=== PATIENT | female | born 1950 | race Caucasian/White ===

== ENCOUNTER → 2023-09-07 09:57 | Outpatient (REF) | payer MEDICARE, OTHER, SELFPAY ==
[2023-09-07 11:57] LABS: HDL Cholesterol 73 mg/dl; LDL Cholesterol, Calculated 110 mg/dl; Total Cholesterol 198 mg/dl (50-199); Triglyceride 75 mg/dl (10-149); Very Low Density Lipoprotein 15 mg/dl (0-30)
== END ==
LOC: REG 09:57
PROVIDERS: ATTENDING PHYSICIAN Family Medicine
DX: E78.5 Hyperlipidemia, unspecified (principal); R73.03 Prediabetes
CPT/HCPCS: 36415; 80061; 83036

== ENCOUNTER → 2023-12-08 11:00 | Outpatient (REF) | payer MEDICARE, OTHER, SELFPAY ==
[2023-12-08 13:54] LABS: Free T4 1.24 ng/dl (0.78-2.19)
[2023-12-08 14:08] LABS: TSH 1.67 uIU/ml (0.47-4.68)
[2023-12-08 14:44] LABS: Folate 8.1 ng/ml (2.76-20); Vitamin B12 > 1000 pg/ml (239-931)
== END ==
LOC: REG 11:00
PROVIDERS: ATTENDING PHYSICIAN Specialist; FAMILY PHYSICIAN Family Medicine
DX: E03.9 Hypothyroidism, unspecified (principal); D51.9 Vitamin B12 deficiency anemia, unspecified
CPT/HCPCS: 36415; 82607; 82746; 84439; 84443

== ENCOUNTER → 2023-12-09 15:49 | Outpatient (REF) | payer MEDICARE, OTHER, SELFPAY | LOC: HWRAD 15:49 | PROVIDERS: ATTENDING PHYSICIAN Specialist; FAMILY PHYSICIAN Family Medicine | DX: G31.84 Mild cognitive impairment of uncertain or unknown etiology (principal) | CPT/HCPCS: 70450 ==

== ENCOUNTER → 2024-02-16 06:31 | Day surgery (SDC) | payer MEDICARE, OTHER, SELFPAY | LOC: GI 06:31 | PROVIDERS: ATTENDING PHYSICIAN Specialist | DX: Z12.11 Encounter for screening for malignant neoplasm of colon (principal); K64.8 Other hemorrhoids; K57.30 Diverticulosis of large intestine without perforation or abscess without bleeding; Z80.0 Family history of malignant neoplasm of digestive organs; Z86.010 Personal history of colon polyps; Z98.0 Intestinal bypass and anastomosis status | CPT/HCPCS: G0105 ==

== ENCOUNTER → 2024-03-02 12:12 | Outpatient (REF) | payer MEDICARE, OTHER, SELFPAY | LOC: WDC 12:12 | PROVIDERS: ATTENDING PHYSICIAN Obstetrics & Gynecology; FAMILY PHYSICIAN Family Medicine | DX: Z12.31 Encounter for screening mammogram for malignant neoplasm of breast (principal) | CPT/HCPCS: 77063; 77067 ==

== ENCOUNTER → 2024-03-16 10:44 | Outpatient (REF) | payer MEDICARE, OTHER, SELFPAY | LOC: RAD 10:44 | PROVIDERS: ATTENDING PHYSICIAN Obstetrics & Gynecology; FAMILY PHYSICIAN Family Medicine | DX: Z78.0 Asymptomatic menopausal state (principal) | CPT/HCPCS: 77080 ==

== ENCOUNTER → 2024-11-15 16:30 | Outpatient (REF) | payer MEDICARE, OTHER, SELFPAY | LOC: RAD 16:30 | PROVIDERS: ATTENDING PHYSICIAN Student in an Organized Health Care Education/Training Program; FAMILY PHYSICIAN Family Medicine | DX: R10.31 Right lower quadrant pain (principal) | CPT/HCPCS: 74177; Q9967 ==

== ENCOUNTER 2024-11-16 00:17 | Day surgery (SDC) | payer MEDICARE, OTHER, SELFPAY ==
[2024-11-15 19:19] VITALS: BP 163/100
[2024-11-15 19:44] LABS: % Basophils 0.9 % (0-2); % Eosinophils 1.4 % (0-6); % Immature Granulocytes 0.2 % (0-0.5); % Monocytes 7.1 % (1.7-9.3); % Neutrophils 61.4 % (42.2-75.2); Absolute Basophils 0.1 10^3/uL (0-0.2); Absolute Eosinophils 0.1 10^3/uL (0-0.7); Absolute Lymphocytes 1.9 10^3/uL (1.2-3.4); Absolute Monocytes 0.5 10^3/uL (0.1-0.6); Absolute Neutrophils 4.1 10^3/uL (1.4-6.5); Hematocrit 43.6 % (37.0-47.0); Hemoglobin 15.1 g/dL (12.0-16.0); Mean Corp Hgb Conc. 34.6 g/dL (33.0-37.0); Mean Corpuscular Hgb 32.3 pg (27.0-31.0); Mean Corpuscular Volume 93.2 fL (81.0-99.0); Mean Platelet Volume 10.5 fL (7.4-10.4); Nucleated Red Blood Cells % 0 %; Platelet Count 216 10^3/uL (130-400); Red Blood Cell Count 4.68 10^6/uL (4.20-5.40); Red Cell Dist. Width 12.1 % (11.5-14.5); White Blood Cell Count 6.6 10^3/uL (4.8-10.8)
[2024-11-15 19:57] LABS: ALT (SGPT) 22 U/L (0-35); AST (SGOT) 25 U/L (14-36); Albumin 4.2 g/dl (3.5-5.0); Alkaline Phosphatase 53 U/L (38-126); Blood Urea Nitrogen 19 mg/dl (7-17); Carbon Dioxide 33 mmol/L (22-30); Chloride 94 mmol/L (98-107); Glucose 132 mg/dl (70-99); Potassium 3.6 mmol/L (3.5-5.1); Sodium 136 mmol/L (135-145); Total Bilirubin 0.8 mg/dl (0.2-1.3); eGFR > 60.00
--- NOTE | 2024-11-15 22:46 | ED.GENMED ---
History of Present Illness
General
Chief Complaint: Abdominal Pain
Time Seen by Provider: 11/15/24 22:45
History of Present Illness
History of Present Illness:
TIME OF INITIAL ENCOUNTER: 10:50 PM
HPI: The patient came in due to a CAT scan that showed appendicitis that was obtained about 6 hours ago. She developed right-sided abdominal pain that started 3 days ago. It has been intermittently worsening. No fevers. She does not have any
pain in the left side. The pain is primarily in the right lower part of the abdomen.
EXAM:
GENERAL: Well appearing in no distress
HEENT: Moist oral mucosa
CARDIOVASCULAR: No murmurs, normal heart rate, regular rhythm, No chest wall tenderness
PULMONARY: No respiratory distress, breath sounds are clear and equal
ABDOMEN: Soft with no peritoneal signs, focal tenderness in the right lower quadrant tenderness
NEUROLOGIC: Excellent strength all extremities, no coordination deficits
PSYCHIATRIC: Appropriate mental status, normal insight and judgement
EXTREMITIES: Nontender, no edema, moves all extremities equally
SKIN: No rash, no lesions
NUMBER AND COMPLEXITY OF PROBLEMS ADDRESSED AT THE ENCOUNTER
� Chronic conditions affecting care: High blood pressure, hyperlipidemia
� Acute Exacerbation and/or Progression of Chronic Illness: This is an acute problem
� Differential Diagnosis includes: Acute appendicitis, mesenteric adenitis, viral syndrome
AMOUNT AND/OR COMPLEXITY OF DATA TO BE REVIEWED AND ANALYZED
� I performed an independent evaluation of and my interpretation is:
EKG:
CT:
X-rays:
Laboratory Studies: White count normal 6.6, chemistries unremarkable
Other:
� Review of other/old records: CT imaging from earlier today shows mild acute appendicitis
� Clinical information was obtained by an independent historian: None needed
� Prescriptions/Medications Considered but not given:
� Further testing considered but not performed:
RISK OF COMPLICATIONS AND/OR MORBIDITY OR MORTALITY OF PATIENT MANAGEMENT
� Social determinants of health affecting care: Lives at home
� Discussion with other providers: I notified Dr. Muhammad of patient's presentation and abnormal CT findings. He recommends hospitalist service and he will see in the morning.
� Escalation of care including admission/observation vs risk of discharge considered: Will keep in the hospital for probable/likely appendicitis but will be evaluated by surgery tomorrow
ANY OTHER UPDATES:
Past History
Past History
ED Past Medical History: GERD, HTN, Hypercholesterolemia and Other (Diverticulosis, diverticulitis with GI bleed April 2014)
ED Past Surgical History: Gynecological (Tubal ligation)
Social History
Tobacco: Non-smoker
Alcohol: None
Drug: None
Personal:
Living: with family
Employment: Employed
Family History
Family History: Hypertension
Phy Exam
Physical Exam
Physical Exam:
See HPI
Course
Orders/Labs/Results
Orders:
Orders
11/15/24 19:28
Complete Blood Count/With Diff Urgent
Comprehensive Metabolic Panel Urgent
11/15/24 22:58
MetroNIDAZOLE 500 MG/100 ML [Flagyl 500 mg] 100 ml IV NOW
11/15/24 22:59
0.9% Sodium Chloride 1000 ml [Nss] 1,000 ml IV BOLUS
11/15/24 23:25
Ciprofloxacin 400 mg/[id number] [Cipro 400 mg] 200 ml IV NOW
Abnormal Lab Results
11/15/24
19:28
MCH 32.3 H pg
(27.0-31.0)
MPV 10.5 H fL
(7.4-10.4)
Chloride 94 L mmol/L
(98-107)
Carbon Dioxide 33 H mmol/L
(22-30)
BUN 19 H mg/dl
(7-17)
Glucose 132 H mg/dl
(70-99)
11/15/24 19:28
11/15/24 19:28
Vital Signs
Initial and Last Documented VS:
Initial Vital Signs
Temp Pulse Resp BP Pulse Ox
36.8 C 66 16 163/100 95
11/15/24 19:19 11/15/24 19:19 11/15/24 19:19 11/15/24 19:19 11/15/24 19:19
Last Documented Vital Signs
Temp Pulse Resp BP Pulse Ox
36.8 C 82 16 163/100 96
11/15/24 19:19 11/15/24 23:38 11/15/24 23:38 11/15/24 19:19 11/15/24 23:40
*Critical Care Note
Total Time (30-74mins, 75-104mins- exclusive of procedures): Not Applicable
ED Attending Note
-
Portions of this chart may have been created with voice recognition software.� Occasional wrong word or��sound alike� substitutions may have occurred due to the inherent limitations of voice recognition software.
Discharge Plan
Departure
Patient Disposition: Admit
Date of Disposition: 11/15/24
Time of Disposition: 23:34
Presentation/result/management discussed w/ accepting MD/DO: Hospitalist
Patient with high blood pressure during this ER visit?: Yes
Discharge Problem:
Acute appendicitis
Prescriptions:
No Action
metoprolol tartrate 25 MG tablet
25 mg PO HS
pravastatin 20 MG tablet
20 mg PO HS
esomeprazole magnesium [Nexium 24HR] 20 MG capsule,delayed release(DR/EC)
20 mg PO DAILY
cholecalciferol (vitamin D3) [Vitamin D3] 25 MCG capsule
25 mcg PO DAILY
coenzyme Q10 100 MG capsule
100 mg PO DAILY
cyanocobalamin (vitamin B-12) 1,000 MCG capsule
1,000 mcg PO DAILY
L.acidoph,paracasei,B.animalis 1 EACH capsule
1 ea PO DAILY
psyllium husk [Metamucil] 0.4 GM capsule
0.4 gm PO DAILY
Referrals:
Orlando Rios MD [Family Provider] -
Interventions
Interventions:
*Risk Screen - Suicide Last Done: 11/15/24 19:19
*General Assessment Last Done: 11/15/24 19:19
*Neglect/Abuse Screening Last Done: 11/15/24 19:19
*ED- Fall Risk Assessment Last Done: 11/15/24 19:19
*ED COVID-19 Vaccine History Last Done: 11/15/24 19:19
WT-Jfbnno-Uhtwmjknaf Assessment Last Done: 11/15/24 23:40
Discharge Date and Time
Print Language: FRENCH
[2024-11-15] MEDS: NSS 1000 IV (23:17)
[2024-11-15] MEDS: FLAGYL 500 MG 100 IV (23:19)
[2024-11-15 23:24] VITALS: BMI 28.5
[2024-11-16] VITALS (12 sets, daily range): BP systolic 113–152; BP diastolic 61–86; BMI 28.4
--- NOTE | 2024-11-16 | HPS.HSE ---
Family Physician
-
Family Physician: Orlando Rios
Chief Complaint
-
Abd pain
History of Present Illness
Patient is a 73y F with PMH significant for hypertension and diverticular disease s/p sigmoid resection who presents to ED complaining of abdominal pain. Patient states that she woke from sleep around 5 AM on Thursday AM with sharp, stabbing RLQ
abdominal pain. Pain was severe at that time, but gradually improved. The pain did not fully resolve and has remained present since that time. Patient describes more tenderness than pain. She denies any associated symptoms such as fevers /
chills, N/V/D or urinary complaints.
Patient was seen by her PCP and a CT scan was performed. She was called this evening to present to the ED as CT scan suggested mild acute appendicitis.
Patient is resting comfortably in the ED.
Medical History
Past Medical History
Past Medical History: Reports Other
Additional Past Medical History:
Hypertension
Diverticular Disease
GERD
Dyslipidemia
Past Surgical History: Reports Other
Additional Past Surgical History:
Sigmoid Resection
D&C
Tubal Ligation
Social History
Tobacco: Former Smoker (Quit at age 31. < 10 pack years total use.)
Alcohol: Occasional
Drug: None
Family History
Family History: Not pertinent
Allergies / Home Medications
Allergies reflects when Allergies were last updated in [employer].
Home Medications with original date entered in [employer]
Allergy/Medication List:
Allergies
Allergy/AdvReac Type Severity Reaction Status Date / Time
Penicillins Allergy causes Verified 08/05/21 16:01
headaches
Home Medications
metoprolol tartrate 25 mg tablet 25 mg PO HS Blood pressure 04/30/13
L.acidoph,paracasei,B.animalis 10 billion cell capsule 1 ea PO DAILY Supplement 07/24/21
cholecalciferol (vitamin D3) 25 mcg (1,000 unit) capsule (Vitamin D3) 25 mcg PO DAILY Supplement 07/24/21
coenzyme Q10 100 mg capsule 100 mg PO DAILY Supplement 07/24/21
cyanocobalamin (vitamin B-12) 1,000 mcg capsule 1,000 mcg PO DAILY Supplement 07/24/21
pravastatin 20 mg tablet 20 mg PO HS High cholesterol 07/24/21
psyllium husk 0.4 gram capsule (Metamucil) 0.4 gm PO DAILY Gastrointestinal issue 07/24/21
Review of Systems
-
History Source: Patient
A 12 point ROS was completed and negative except as noted: Yes
Constitutional: Denies Fever, Fatigue or Chills
Respiratory: Denies Cough or Trouble Breathing
Cardiac: Denies Chest Pain or Palpitations
Abdomen/GI: Reports Abdominal Pain; Denies Nausea, Vomiting or Diarrhea
: Denies Dysuria, Frequency or Flank Pain
Musculoskeletal: Denies Joint Pain or Edema
Neurological: Denies Dizzy or Headache
Physical Exam
Vital Signs
Vital Signs
Temp Pulse Resp BP Pulse Ox
98.2 F 82 16 163/100 96
11/15/24 19:19 11/15/24 23:38 11/15/24 23:38 11/15/24 19:19 11/15/24 23:40
Physical Exam
General: Other (73y F in no acute distress.)
HEENT: Moist mucous membranes and PERRLA
Respiratory: Clear; No Wheezes, Rales or Rhonchi
Cardiac: S1/S2 and Regular Rhythm; No Murmur
GI: Soft, Non Distended, Normal Bowel Sounds and Other (Pos tenderness R abdomen - more RUQ than RLQ on my exam. No rebound / guarding. Pos BS.)
Musculoskeletal: No Clubbing, No Cyanosis and No Edema
Neuro: AO x 3
Laboratory Results
-
11/15/24 19:28
11/15/24 19:
Laboratory Results
Total Bilirubin 0.8 mg/dl (0.2-1.3) 11/15/24 19:
AST 25 U/L (14-36) 11/15/24 19:
ALT 22 U/L (0-35) 11/15/24 19:
Alkaline Phosphatase 53 U/L (38-126) 11/15/24 19:
Impression/Plan
-
A/P: Patient is a 73y F with PMH significant for diverticular disease s/p sigmoid resection who presents to ED complaining of abdominal pain.
Abdominal Pain
- Observe overnight for further evaluation and treatment.
- CT scan as an outpatient suggests mild acute appendicitis.
- Patient is afebrile, non-toxic appearing with leukocytosis.
- Tenderness seems more RUQ at the time of my exam. Liver, GB, etc unremarkable on CT.
- Continue IV abx for now.
- Surgery evaluation for additional recommendations.
- Monitor for any new / worsening symptoms.
- Follow temperature curve.
Benign Hypertension
- Stable. Continue metoprolol.
DVT Prophylaxis: SCDs
Code Status: Full
[2024-11-16] MEDS: CIPRO 400 MG 200 IV (00:18)
[2024-11-16] MEDS: LR 1000 IV ×2 (02:33→14:53)
--- NOTE | 2024-11-16 05:10 | PTCARENOTE ---
received patient from the ED. pt is AAOx3, able to make needs known. VSS. 96% RA. pt does admit to some tenderness to right lower quadrant. pt educated on asking for pain medication. IV fluids hung. oriented to new room, call ledezma within reach, care
ongoing.
[2024-11-16 06:43] LABS: Hematocrit 38.3 % (37.0-47.0); Hemoglobin 13.5 g/dL (12.0-16.0); Mean Corp Hgb Conc. 35.2 g/dL (33.0-37.0); Mean Corpuscular Hgb 32.9 pg (27.0-31.0); Mean Corpuscular Volume 93.4 fL (81.0-99.0); Mean Platelet Volume 10.6 fL (7.4-10.4); Platelet Count 170 10^3/uL (130-400); Red Cell Dist. Width 12.3 % (11.5-14.5); White Blood Cell Count 4.6 10^3/uL (4.8-10.8)
[2024-11-16 07:09] LABS: ALT (SGPT) 17 U/L (0-35); AST (SGOT) 20 U/L (14-36); Albumin 3.7 g/dl (3.5-5.0); Alkaline Phosphatase 49 U/L (38-126); Blood Urea Nitrogen 19 mg/dl (7-17); Calcium 8.7 mg/dl (8.4-10.2); Carbon Dioxide 26 mmol/L (22-30); Chloride 103 mmol/L (98-107); Direct Bilirubin 0.2 mg/dl (0.0-0.4); Estimated Creatinine Clearance 72 ml/min; Glucose 104 mg/dl (70-99); Potassium 3.7 mmol/L (3.5-5.1); Sodium 138 mmol/L (135-145); Total Bilirubin 0.6 mg/dl (0.2-1.3); Total Protein 5.8 g/dl (6.3-8.2); eGFR > 60.00
[2024-11-16] MEDS: FLAGYL 500 MG 100 IV ×2 (09:00→15:05)
--- NOTE | 2024-11-16 12:33 | W.IMMPOSTOP ---
Surgical Immed Post Op Note
-
Primary Surgeon: Jb
Assisting: Daniella PGY1, Reji RING ROLLING MACHINE OPERATOR
Pre-op Diagnosis: Acute appendicits
Post-op Diagnosis: Same
Procedure Performed: Laparoscopic appendectomy
Anesthesia Type: GETA
Specimen / Cultures: Appendix
Estimated Blood Loss: 5cc
Complications: None immediate
Operative Findings: Mildly inflamed appendix, no free fluid in pelvis
--- NOTE | 2024-11-16 12:34 | OR.RPT ---
Operative Report
Operative Report
Primary Surgeon: Jb
Assisting: Reji Urias
Pre-op Diagnosis: Acute appendicits
Post-op Diagnosis: Same
Procedure Performed: Laparoscopic appendectomy
Anesthesia Type: GETA
Specimen / Cultures: Appendix
Estimated Blood Loss: 5cc
Complications: None immediate
Operative Findings: Mildly inflamed appendix, no free fluid in pelvis
Date of Surgery: 11/16/24
Indications: This 73F developed right lower quadrant abdominal pain and on workup was found to have acute appendicitis. Laparoscopic appendectomy was elected.
Description of procedure: The patient was placed on the operating table in the supine position. General anesthesia was induced. A time-out was completed verifying correct patient, procedure, site, positioning, and special equipment prior to
beginning this procedure. An orogastric tube was placed. The abdomen was prepped and draped in the usual sterile fashion. A stab incision was made in left upper quadrant and the Veress needle was inserted. Proper position was confirmed by aspiration
and saline meniscus test. The abdomen was insufflated with carbon dioxide to a pressure of 12 mmHg. The patient tolerated insufflation well.
A 5mm optical trocar was then inserted at the left lower quadrant. The laparoscope was inserted and the abdomen inspected. No injuries from initial trocar placement or Veress needle insertion were noted. Additional trocars were then inserted in the
following locations: a 12-mm trocar at the umbilicus and a 5-mm trocar midline in the suprapubic space. The abdomen was inspected and no abnormalities were found. The table was placed in the Trendelenburg position with the right side up. The tip of
the appendix was gently grasped with an atraumatic grasper and retracted toward the patient�s feet and abdominal wall. This maneuver exposed the appendiceal blood supply which was controlled with the voyant device. Following this, a laparoscopic
linear cutting stapler with a 45mm balderas load was deployed and used to transect the appendix at its base. The appendix was placed in an endoscopic retrieval bag, removed through the umbilical port, and passed off the table as a specimen.
We then turned our attention to the staple line, which was noted to be hemostatic. The pelvis was inspected, no free fluid was identified. The umbilical trocar site was closed at the fascial level laparoscopically with 2-0 PDS under direct vision.
Secondary trocars were removed under direct vision and noted to be hemostatic. The laparoscope was withdrawn and the abdomen was allowed to collapse. The skin was closed with subcuticular sutures of 4-0 monocryl and topical skin adhesive. The
orogastric tube was removed.
The patient tolerated the procedure well and was taken to the postanesthesia care unit in stable condition.
[2024-11-16] MEDS: DILAUDID 0.5 MG IV (13:25)
--- NOTE | 2024-11-16 14:31 | W.PN.HOSP.TC ---
Today's Communication/Plan
-
if able to wean off O2, d/c
Assessment / Plan
Assessment / Plan
pt is a 73 year old female
Abdominal Pain--CT with acute appendicitis--apprec surg--s/p lap appy--cleared for d/c by gen surg
acute hypoxemic resp insufficiency--requiring 2 L O2 due to anesthesia--wean to off
Benign Hypertension- Stable. Continue metoprolol.
DVT Prophylaxis: SCDs
Code Status: Full
Anticipated Discharge: Today
Subjective/Interval History
-
Date of Service: November 16, 2024
pt seen post appy--still a bit groggy
Objective Data
-
Labs:
Laboratory Results
11/16/24
06:18
WBC 4.6 L
Hgb 13.5
Hct 38.3
Plt Count 170 D
Sodium 138
Potassium 3.7
Chloride 103
Carbon Dioxide 26
BUN 19 H
Creatinine 0.7
Glucose 104 H
Calcium 8.7
Total Bilirubin 0.6
AST 20
ALT 17
Alkaline Phosphatase 49
Vital Signs:
max temp for 24 hours
11/16/24
12:50
Temp 98.6 F
Vital Signs
Temp Pulse Resp BP Pulse Ox
97.6 F 73 16 124/79 98
11/16/24 14:10 11/16/24 14:10 11/16/24 14:10 11/16/24 14:10 11/16/24 14:10
I&O
11/15/24 11/16/24 11/17/24
06:59 06:59 06:59
Intake Total 200 / 200
Balance 200 / 200
Review of Systems
-
All other systems: Reviewed and negative
Physical Exam
-
General: Well Developed, Well Nourished and No Apparent Distress
HEENT: Normocephalic and Atraumatic
Respiratory: Clear to Auscultation; Negative Wheezes or Rhonchi
Cardiac: Regular Rhythm and S1/S2; Negative Murmur
GI: Soft, Nontender, Nondistended and Normal Bowel Sounds
Musculoskeletal: No Clubbing, No Cyanosis and No Edema
Neuro: Awake
Psych: Calm
--- NOTE | 2024-11-16 15:02 | W.DCSUMMARY ---
Discharge Summary
Discharge Data
Date of Admission: 11/16/24
Date of Discharge: 11/16/24
-
Pending Results: No
Hospital Course
Primary care physician : Orlando Rios
Principal Discharge diagnosis : Acute appendicitis, acute hypoxemic respiratory insufficiency
Chronic Discharge diagnosis : Essential hypertension
Hospital Course : Patient was a 73-year-old female who awoke from sleep around 5 AM on Thursday morning with sharp stabbing right lower quadrant abdominal pain. She stated that the pain at that time was severe but gradually improved. However, the
pain did not fully resolve and she describes it as more tenderness than pain. She denies fever, chills, nausea, vomiting, diarrhea, or urinary symptoms. Patient was seen by her primary care physician who ordered a CAT scan. CAT scan showed acute
appendicitis. Patient was admitted.
Problem #1: Acute appendicitis. Patient was admitted and made n.p.o. with IV fluids. She was seen in consultation by surgery and underwent laparoscopic appendectomy. There were no complications and the patient has been cleared for discharge home
by surgery.
Problem #2: Acute hypoxemic respiratory insufficiency. This was due to anesthesia. Patient was still groggy and requiring 2 L of oxygen. Patient was weaned off oxygen prior to discharge and with stable pulse ox.
Problem #3: All other medical issues. These include essential hypertension. Medications were continued as able.
Patient is stable for discharge home at this time. If there are any questions regarding this dictation or her hospital stay, please do not hesitate to call. Our office number is [phone].
Important imaging findings :
CT ABDOMEN/PELVIS IMPRESSION:
1. MILD ACUTE APPENDICITIS.
2. 3.0 cm hepatic hemangioma.
3. Small 9.4 mm left ovarian cyst.
4. Previous sigmoidectomy.
Discharge Plan
-
Patient Disposition: Home (Routine Discharge)
Discharge Diagnosis/Procedures: Laparoscopic appendectomy
Diet: No restrictions
Activity: No strenuous activity
Driving Restrictions: No driving for 24 hours
Bathing Restrictions: OK to Shower
Wound Care: Allow skin lgue to flake off on its own
Instructions: Appendectomy - Discharge instructions
Referrals:
Anand Muhammad MD [Active] - in two to four weeks
Orlando Rios MD [Family Provider] - in less than 1 week
Prescriptions:
New
tramadol 50 mg Tablet
50 mg PO Q6HPRN PRN (Reason: severe pain) Qty: 10 0RF
Continued
metoprolol tartrate 25 MG tablet
25 mg PO HS
pravastatin 20 MG tablet
20 mg PO HS
cholecalciferol (vitamin D3) [Vitamin D3] 25 MCG capsule
25 mcg PO DAILY
coenzyme Q10 100 MG capsule
100 mg PO DAILY
cyanocobalamin (vitamin B-12) 1,000 MCG capsule
1,000 mcg PO DAILY
L.acidoph,paracasei,B.animalis 1 EACH capsule
1 ea PO DAILY
psyllium husk [Metamucil] 0.4 GM capsule
0.4 gm PO DAILY
Discharge Orders:
Discharge Patient (As Directed); Ordered 11/16/24
Ordered By: Cleo Polk
Discharge Date and Time
Print Language: HEBREW
--- NOTE | 2024-11-16 15:29 | CON.GS ---
Consultation
-
Date/Time Consultation Performed: 11/16/24
Requesting Provider: Jam
Performing Provider: Jb
Reason for Consultation: Acute appendicitis
Medical History
-
Chief Complaint: Abd pain
History of Present Illness:
73F p/w RLQ abd pain that began 5 days ago, initially severe and has waned since then but not resolved. Denies migration and radiation. Denies f/c/n/v. Hungry. Ben changes to stool/urine. Had diverticulitis in past, this feels different.
Past Medical History
Past Medical History: Other (Hypertension Diverticular Disease GERD Dyslipidemia)
Past Surgical History: Other (lap Sigmoid Resection D&C Tubal Ligation)
Social History
Tobacco: Former Smoker
Alcohol: Occasional
Drug: None
Personal:
Family History
Family History: Reviewed & Noncontributory
Allergies / Home Medications
Allergy/AdvReac Type Severity Reaction Status Date / Time
Penicillins Allergy causes Verified 08/05/21 16:01
headaches
�Medication �Instructions �Recorded �Confirmed �Type
metoprolol tartrate 25 mg tablet 25 mg PO HS Blood pressure 04/30/13 11/15/24 History
L.acidoph,paracasei,B.animalis 10 1 ea PO DAILY Supplement 07/24/21 11/15/24 History
billion cell capsule
cholecalciferol (vitamin D3) 25 25 mcg PO DAILY Supplement 07/24/21 11/15/24 History
mcg (1,000 unit) capsule (Vitamin
D3)
coenzyme Q10 100 mg capsule 100 mg PO DAILY Supplement 07/24/21 11/15/24 History
cyanocobalamin (vitamin B-12) 1,000 mcg PO DAILY Supplement 07/24/21 11/15/24 History
1,000 mcg capsule
pravastatin 20 mg tablet 20 mg PO HS High cholesterol 07/24/21 11/15/24 History
psyllium husk 0.4 gram capsule 0.4 gm PO DAILY Gastrointestinal 07/24/21 11/15/24 History
(Metamucil) issue
tramadol 50 mg tablet 50 mg PO Q6HPRN PRN severe pain 11/16/24 Rx
#10 tabs
Review of Systems
-
A 10 point review of systems was completed, and was negative except as per HPI.
Physical Exam
Vital Signs
Temp Pulse Resp BP Pulse Ox
97.5 F 68 16 132/77 98
11/16/24 15:10 11/16/24 15:10 11/16/24 15:10 11/16/24 15:10 11/16/24 15:10
11/15/24 11/16/24 11/17/24
06:59 06:59 06:59
Actual Weight 74.979 kg
Body Mass Index (BMI) 28.4
Lab Results
11/16/24 06:18
11/16/24 06:18
WBC 4.6 10^3/uL (4.8-10.8) L 11/16/24 06:18
Hgb 13.5 g/dL (12.0-16.0) 11/16/24 06:18
Hct 38.3 % (37.0-47.0) 11/16/24 06:18
Plt Count 170 10^3/uL (130-400) D 11/16/24 06:18
Abs Immat Gran (auto) 0.0 10^3/uL (0-0.05) 11/15/24 19:28
Neutrophils % 61.4 % (42.2-75.2) 11/15/24 19:28
Physical Exam
General: Well Developed, Well Nourished and No Apparent Distress
GI: Soft, Non Distended and Tender (rlq ttp, rovsings neg, no guarding)
Skin: Warm and Dry
Neuro: AO x 3
Psych: Calm
Data Reviewed
-
CT Scan: Image Personally Visualized and interpreted, Report Reviewed by me and Discussed with Patient
Labs: Labs Reviewed by me and Discussed with Patient
Assessment / Plan
-
73F with possible acute appendicitis
AFVSS, no leukocytosis, no shift, no fever, no migration of pain, no anorexia, 5 days of symptoms gradually improving
CT with possible mild inflammation about the appendix
Offered obs vs DC home vs lap appy today. She prefers surgery. Informed consent obtained.
IV abx
OCTOR for lap appy
--- NOTE | 2024-11-16 15:50 | CM ---
Met with patient to obtain information for assessment. Patient stated that she lives with her spouse in a two story home with three steps to enter. She described herself as independent with all of her ADLs, personal care, dressing and bathing. She
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 She has never been to a SNF or had VN services.
Patient has a prescription plan and uses, [facility] in [place] for all of her medications.
Her PCP is, Orlando Rios.
Plan: Case management will continue to follow and assist with discharge planning. Home.
== END 2024-11-16 19:07 | disposition home or self-care (01) ==
LOC: PACU 00:17
PROVIDERS: Hospitalist; CONSULT PHYSICIAN Surgery; EMERGENCY PHYSICIAN Emergency Medicine; FAMILY PHYSICIAN Family Medicine
DX: K35.80 Unspecified acute appendicitis (principal)
CPT/HCPCS: 44970; 88304; 80053; 82248; 85025; 85027; 93005; 96361; 96374; 99285; C1776; G0378

== ENCOUNTER 2024-11-16 21:55 | Emergency (ER) | payer MEDICARE, OTHER, SELFPAY ==
[2024-11-16 22:02] VITALS: BP 169/93
[2024-11-16 23:26] VITALS: BMI 29.8
[2024-11-16 23:28] VITALS: BP 167/96
--- NOTE | 2024-11-17 00:14 | ED.GENMED ---
History of Present Illness
General
Chief Complaint: Wound Check/Suture Removal
Source: patient
Exam Limitations: none
Time Seen by Provider: 11/16/24 23:00
Nursing documentation reviewed up to this point in time: agreed with
History of Present Illness
History of Present Illness:
Patient to ED for eval of bleeding from surgical site. SHe had a laproscopic appendectomy earlier today. She noticed some fresh blood on her clothing tonight. Reports oozing from umbilical surgical site. Brought to ED by spouse for eval. Denies
any abdominal pain.
Past History
Past History
ED Past Medical History: GERD, HTN, Hypercholesterolemia and Other (Diverticulosis, diverticulitis with GI bleed April 2014)
ED Past Surgical History: Gynecological (Tubal ligation)
Social History
Tobacco: Non-smoker
Alcohol: None
Drug: None
Personal:
Living: with family
Employment: Employed
Family History
Family History: Hypertension
Review of Systems
Review of Systems
Allergies reviewed?: Yes
All Other Systems: ROS reviewed and negative except as documented in HPI and ROS
Constitutional: Reports no symptoms
EENT: Reports no symptoms
Respiratory: Reports no symptoms
Cardiac: Reports no symptoms
ABD/GI: Reports other (Appendectomy today. Reports oozing from umbilical surgical site. )
: Reports no symptoms
Musculoskeletal: Reports no symptoms
Skin: Reports other (umbilical incision with bleeding [employer])
Neurological: Reports no symptoms
Psychiatric: Reports no symptoms
Phy Exam
General Physical Exam
General Presentation: well appearing and no apparent distress
General age: appears stated age
General Skin: warm and dry
General Habitus: normal
Gastrointestinal Exam
Gastrointestinal Exam: normal bowel sounds, non tender, soft, no organomegaly, non distended and other (Patient reports oozing from umbilical surgical site. No active bleeding in ED. All surgical sites are clean and dry. No erythema. Abdomen
remains soft, nontender)
Musculoskeletal Exam
Musculoskeletal Exam: full ROM
Skin Exam
Skin Exam: normal color, warm/dry and no rash
Psychiatric Exam
Psychiatric Exam: normal mood/affect
Course
Vital Signs
Initial and Last Documented VS:
Initial Vital Signs
Temp Pulse Resp BP Pulse Ox
97.9 F 104 18 169/93 95
11/16/24 22:02 11/16/24 22:02 11/16/24 22:02 11/16/24 22:02 11/16/24 22:02
Last Documented Vital Signs
Temp Pulse Resp BP Pulse Ox
98.1 F 80 16 167/96 93
11/16/24 23:28 11/16/24 23:28 11/16/24 23:28 11/16/24 23:28 11/16/24 23:28
*Critical Care Note
Total Time (30-74mins, 75-104mins- exclusive of procedures): Not Applicable
Update Note
Update Note:
Abdomen remains soft, nontender. All surgical sites are dry and intact. No active bleeding noted. Patient able to sit/stand/ambulate without pain or bleeding. Umbilical site covered with DSD. SHe is discharged home and will follow up with
surgery. She was given instructions on s/s to return to ED and she is agreeable to plan.
ED Attending Note
-
Portions of this chart may have been created with voice recognition software.� Occasional wrong word or��sound alike� substitutions may have occurred due to the inherent limitations of voice recognition software.
Discharge Plan
Departure
Patient Disposition: Home (Routine Discharge)
Date of Disposition: 11/17/24
Time of Disposition: 00:11
Patient with high blood pressure during this ER visit?: No
Condition: Good
Covid-19: Not Applicable
Discharge Problem:
Post-op bleeding
Instructions: Bleeding After Surgery
Prescriptions:
No Action
metoprolol tartrate 25 MG tablet
25 mg PO HS
pravastatin 20 MG tablet
20 mg PO HS
cholecalciferol (vitamin D3) [Vitamin D3] 25 MCG capsule
25 mcg PO DAILY
coenzyme Q10 100 MG capsule
100 mg PO DAILY
cyanocobalamin (vitamin B-12) 1,000 MCG capsule
1,000 mcg PO DAILY
L.acidoph,paracasei,B.animalis 1 EACH capsule
1 ea PO DAILY
psyllium husk [Metamucil] 0.4 GM capsule
0.4 gm PO PRN PRN (Reason: constipation)
tramadol 50 mg Tablet
50 mg PO Q6HPRN PRN (Reason: severe pain) Qty: 10 0RF
famotidine 40 mg Tablet
40 mg PO PRN PRN (Reason: reflux)
Referrals:
Anand Muhammad MD [Active] - Keep scheduled appt
Orlando Rios MD [Family Provider] -
Activity Restrictions/Additional Instructions:
Return to the emergency department for fever/chills, abdominal pain, worsening bleeding, weakness, or for any further concerns
Interventions
Interventions:
*Risk Screen - Suicide Last Done: 11/16/24 22:02
*General Assessment Last Done: 11/16/24 22:02
*Neglect/Abuse Screening Last Done: 11/16/24 22:02
*ED- Fall Risk Assessment Last Done: 11/16/24 23:30
*ED COVID-19 Vaccine History Last Done: 11/16/24 22:02
ED-Skin Assessment Last Done: 11/16/24 23:30
Discharge Date and Time
Print Language: ARGENT[place]
== END 2024-11-17 00:20 | disposition home or self-care (01) ==
LOC: EMR 21:55
PROVIDERS: EMERGENCY PHYSICIAN Emergency Medicine; FAMILY PHYSICIAN Family Medicine
DX: L76.22 Postprocedural hemorrhage of skin and subcutaneous tissue following other procedure (principal); K21.9 Gastro-esophageal reflux disease without esophagitis; I10 Essential (primary) hypertension; E78.00 Pure hypercholesterolemia, unspecified; Z82.49 Family history of ischemic heart disease and other diseases of the circulatory system; Z98.51 Tubal ligation status
CPT/HCPCS: 99282

== ENCOUNTER → 2025-03-02 12:50 | Outpatient (REF) | payer MEDICARE, OTHER, SELFPAY | LOC: WDC 12:50 | PROVIDERS: ATTENDING PHYSICIAN Obstetrics & Gynecology; FAMILY PHYSICIAN Family Medicine | DX: Z12.31 Encounter for screening mammogram for malignant neoplasm of breast (principal) | CPT/HCPCS: 77063; 77067 ==

== ENCOUNTER → 2025-03-27 13:03 | Outpatient (REF) | payer MEDICARE, OTHER, SELFPAY | LOC: RAD 13:03 | PROVIDERS: ATTENDING PHYSICIAN Otolaryngology; FAMILY PHYSICIAN Physician Assistant Medical | DX: R05.9 Cough, unspecified (principal) | CPT/HCPCS: 71046 ==

== ENCOUNTER → 2025-05-16 09:21 | Outpatient (REF) | payer MEDICARE, OTHER, SELFPAY ==
[2025-05-16 09:36] LABS: Hematocrit 42.8 % (37.0-47.0); Hemoglobin 14.6 g/dL (12.0-16.0); Mean Corp Hgb Conc. 34.1 g/dL (33.0-37.0); Mean Corpuscular Volume 95.1 fL (81.0-99.0); Nucleated Red Blood Cells % 0 %; Platelet Count 223 10^3/uL (130-400); Red Cell Dist. Width 12.2 % (11.5-14.5)
[2025-05-16 10:06] LABS: ALT (SGPT) 21 U/L (0-35); AST (SGOT) 25 U/L (14-36); Albumin 4.4 g/dl (3.5-5.0); Alkaline Phosphatase 54 U/L (38-126); Blood Urea Nitrogen 19 mg/dl (7-17); Calcium 9.6 mg/dl (8.4-10.2); Carbon Dioxide 34 mmol/L (22-30); Chloride 95 mmol/L (98-107); Glucose 108 mg/dl (70-99); HDL Cholesterol 71 mg/dl; LDL Cholesterol, Calculated 100 mg/dl; Potassium 3.5 mmol/L (3.5-5.1); Sodium 135 mmol/L (135-145); Total Protein 7.3 g/dl (6.3-8.2); Very Low Density Lipoprotein 15 mg/dl (0-30); eGFR > 60.00
[2025-05-17 10:13] LABS: Glycohemoglobin (HgbA1c) 5.9 % (4.0-5.9)
== END ==
LOC: REG 09:21
PROVIDERS: ATTENDING PHYSICIAN Physician Assistant Medical
DX: I10 Essential (primary) hypertension (principal); E78.2 Mixed hyperlipidemia; K21.9 Gastro-esophageal reflux disease without esophagitis; R05.3 Chronic cough; R73.09 Other abnormal glucose
CPT/HCPCS: 36415; 80053; 80061; 83036; 84443; 85025

== ENCOUNTER → 2025-06-07 12:16 | Outpatient (REF) | payer MEDICARE, OTHER, SELFPAY | LOC: HWRAD 12:16 | PROVIDERS: ATTENDING PHYSICIAN Internal Medicine Critical Care Medicine; FAMILY PHYSICIAN Physician Assistant Medical | DX: R05.3 Chronic cough (principal) | CPT/HCPCS: 71250 ==